=== PATIENT | female | born 2000 | race Caucasian/White ===

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

== ENCOUNTER → 2019-08-04 | Outpatient (CLI) | payer BC ==
[~2019-08-04] MED LIST: ZOFRAN ODT4 MG PO
[2019-08-06 11:21] LABS: EBV NUCLEAR ANTIGEN IGG Positive (())
[2019-08-06 12:24] LABS: EBV EARLY ANTIGEN IGG Negative (())
[2019-08-06 16:32] LABS: EBV IGM AB Negative (())
== END ==
LOC: ZCOL.LAB 17:41
PROVIDERS: Family Medicine
DX: J02.9 Acute pharyngitis, unspecified (principal)

== ENCOUNTER → 2020-04-04 | Outpatient (CLI) | payer BC | LOC: ZCOL.LAB 10:56 | DX: R05 Cough (principal); R51 Headache; R07.0 Pain in throat; Z20.828 Contact with and (suspected) exposure to other viral communicable diseases ==